=== PATIENT | female | born 1985 | race Caucasian/White ===

== ENCOUNTER → 2016-05-18 | Outpatient (CLI) | payer BC ==
[~2016-05-18] MED LIST: ALBU8.5H2 IH; BUDE10.2 IH; DEXL60CA5 PO; HYOS0.1217 PO; LEVO5TAB12 PO; LEVO75TA4 PO; ZOLP10TA PO
--- NOTE | 2016-05-18 12:11 | Diagnostic Imaging Report ---
Exam: MRI of the right foot without contrast. Date: May 18, 2016. Indication: 30-year-old female, right foot pain. Technique: Multiple noncontrast MRI sequences of the right foot were obtained. Comparison: None. Findings: A marker was placed at the site of new focal patient pain which is dorsally located centered above the level of the second metatarsal base. The Lisfranc ligament complex is intact. There is normal alignment of the metatarsal bases relative to their cuneiform and cuboid articulations. The visualized posterior flexor tendons are intact. There is a small amount of fluid within the tendon sheath the peroneus longus compatible with low level tenosynovitis. The peroneal tendons are otherwise intact in their visualized portions. The anterior extensor tendons are intact in their visualized segments. The visualized portions of the plantar fascia are intact. There is linear artifact in the distal aspect of the first metatarsal likely relating to postoperative changes. There is uncovering of the lateral sesamoid compatible with a hallux valgus deformity. There is a bipartite medial sesamoid without pronounced adjacent soft tissue swelling. There are mild changes of osteoarthritis at the first metatarsophalangeal joint. The additional joint spaces are well-preserved. There is no bone erosion. There is no joint effusion. There is no acute fracture, bone contusion, or evidence of osteonecrosis. There is no evidence of stress reaction. There is very mild soft tissue swelling adjacent to the first metatarsophalangeal joint. The additional soft tissues are unremarkable. Impression: 1. Low level tenosynovitis of peroneus longus. 2. Hallux valgus deformity with postoperative changes of the distal aspect of the first metatarsal. Mild osteoarthritis at the first metatarsophalangeal joint. 3. Intact Lisfranc ligament complex. 4. No acute fracture, bone contusion, or evidence of stress reaction. Dictated by: Dictated on workstation # [id number]
== END ==
LOC: RAD 08:22
PROVIDERS: ATTEND Podiatrist
DX: M79.671 Pain in right foot (principal); M20.11 Hallux valgus (acquired), right foot; M19.071 Primary osteoarthritis, right ankle and foot
CPT/HCPCS: 73718

== ENCOUNTER 2016-06-08 10:51 | Day surgery (SDC) | payer BC ==
[~2016-06-08] VITALS: Ht 162.6 cm; Wt 102.0 kg
[~2016-06-08 10:51] MED LIST changes: +AMIT10TA6 PO; +CLINDAMYCIN INJ 600 MG in SODIUM CHLORIDE 50 ML IV SCH; +LACTATED RINGERS 1,000 ML IV SCH; +SODIUM CHLORIDE FLUSH 3 ML SYR IV PRN
--- OUTSIDE RECORDS SUMMARY | 2016-06-08 10:54 | XMS REPORT | Continuity of Care Document ---
Author Author [facility] Organization [facility] Address Unknown Phone Unavailable Care Team Providers Care Die Turner Name Role Phone Rosa Avendano PCP [phone] Source Comments Some departments are not documenting in the electronic medical record. If you do not see the information that you expected, contact Release of Information in the Health Information Management department at [phone] for further assistance in locating additional records.[facility] Active Allergies and Adverse Reactions Allergen Noted Date Severity Reactions Comments Penicillins 11/25/2015 Low UNKNOWN Sulfa (Sulfonamide 11/25/2015 Low UNKNOWN Antibiotics) Current Medications Prescription Sig. Disp. Refills Start End Date Status Date Levocetirizine 5 mg tab Take by mouth. Active budesonide/formoterol Inhale 2 Puffs by mouth Active (SYMBICORT HFA) 160/4.5 into the lungs twice mcg inhalation daily. dexlansoprazole (+) Take 60 mg by mouth Active (DEXILANT) 60 mg capsule daily. amitriptyline (ELAVIL) 50 Take 0.5 Tabs by mouth at 30 Tab 5 11/25/19 Active mg tablet bedtime as needed. July 04 increase to 1 tab after 2 weeks Active Problems Problem Noted Date Oropharyngeal dysphagia 11/25/2015 Most Recent Encounters Date Type Specialty Providers Description 05/02/2016 Telephone Gastroenterology Amari-Dali Stephens, Results INTERN Social History Tobacco Use Types Packs/Day Years Used Date Never Smoker Last Filed Vital Signs Vital Sign Reading Time Taken Blood Pressure 149/97 11/25/2015 12:48 PM CDT Pulse 85 11/25/2015 12:48 PM CDT Temperature 37.1 C (98.8 F) 11/25/2015 12:48 PM CDT Respiratory Rate - - Height 1.626 m (5' 4") 11/25/2015 12:48 PM CDT Weight 94.257 kg (207 lb 12.8 11/25/2015 12:48 PM CDT oz) Body Mass Index 35.65 11/25/2015 12:48 PM CDT Oxygen Saturation - - Plan of Care Health Maintenance Due Date Last Done Comments Physical (Comprehensive) 07/04/1990 Exam Pertussis Vaccine 07/04/1994 Tetanus Vaccine 07/04/2000 Cervical Cancer Screening 07/04/2004 Influenza Vaccine 10/20/2016 Results from Last 3 Months Not on file
--- OUTSIDE RECORDS SUMMARY | 2016-06-08 10:55 | XMS REPORT | Continuity of Care Document ---
Author Author [facility] Organization [facility] Address Unknown Phone Unavailable Care Team Providers Care Gold Prospector Name Role Phone Rosa Avendano PCP [phone] Source Comments Some departments are not documenting in the electronic medical record. 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
[2016-06-08 11:03] VITALS: BP 143/83
[2016-06-08 11:44] LABS: BASOPHILS % (AUTO) 0 % (0-2); EOSINOPHILS # (AUTO) 0.2 10^3uL; EOSINOPHILS % (AUTO) 2 % (0-4); MEAN CORPUSCULAR HEMOGLOBIN 30.5 PG (26.0-34.0); MEAN CORPUSCULAR HGB CONC 32.7 g/dL (31.0-37.0); MEAN CORPUSCULAR VOLUME 93 FL (80-100); MEAN PLATELET VOLUME 9.2 FL (6.0-9.5); MONOCYTES % (AUTO) 11 % (3-11); NEUTROPHILS # (AUTO) 5.5 X10^3; NEUTROPHILS % (AUTO) 63 % (51-67); PLATELET COUNT 272 10^3uL (150-450); WHITE BLOOD COUNT 8.65 10^3uL (4.0-11.0)
[2016-06-08 11:46] LABS: BILIRUBIN,URINE Negative (Negative); CLARITY,URINE Clear; COLOR,URINE Yellow; GLUCOSE, URINE (UA) Negative (Negative); LEUKOCYTE ESTERASE, URINE Negative (Negative); PH,URINE 6.5 (5.0 - 8.0); UROBILINOGEN,URINE 0.2 mg/dL (0.2-1.0)
[2016-06-08 11:49] LABS: HCG,QUALITATIVE URINE Negative (Negative)
--- NOTE | 2016-06-08 12:38 | History and Physical (E) ---
History & Physical PCP: Titus Raya CC: Right foot pain- pre op medical clearance HPI: Hansa is a 30 year old female here for pre op medical clearance for right foot pain due to a lateral deviation of the Right hallux and exostosis formation. She had surgery on that foot in 2001 and has hardware present. She has not been able to get lasting pain relief as conservative measures have failed. She has opted for surgical intervention. Today she denies fever, chills, cough or sore throat. No chest pain or SOB- her asthma has been stable- she has seasonal allergies that flare up time to time. No nausea or vomiting, no abdominal pain. She is here with a friend who will help her post op. 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 HOME MEDICATIONS: Please see list at end of report. FH: Mother has hypothyroid Father of Liver cancer SH: Lives at home, not working currently, non smoker, no alcohol has 2 children ROS CONSTITUTION: Denies weight loss or gain. Denies fever or chills. HEENT: No change in vision or hearing. No sores in mouth, sore throat. CV: No chest pain, palpitations. No cardiac history PULM: No cough, shortness of breath, difficulty breathing. H/O asthma but stable GI: No upset stomach, nausea, vomiting, constipation, or diarrhea. No blood in stool. H/O GERD- stable : No dysuria. No blood in urine. MS: Endorses right foot pain chronic- No new joint aches and pains. NEURO: No numbness or tingling. No weakness. INTEG: No rashes, lesions, or sores. ENDO: No heat or cold intolerance. No polydipsia or polyuria.No Diabetes HEME/LYMPH: No easy bruising or bleeding. No swollen glands. PSYCH: No change in mood or behavior. OBJECTIVE: Vitals: Vital Signs Date Time Temp Pulse Resp B/P Pulse Ox O2 Delivery O2 Flow Rate FiO2 06/08/16 11:03 99.1 92 20 143/83 96 Room air GEN: Awake, alert, oriented, NAD-speech clear HEENT: EOMI, PERRL, moist oral mucosa. CV: RRR S1 S2 normal with no murmur LUNGS: CTA B no wheezes ABD: Soft, NT/ND with normal bowel sounds. EXTR: No C/C/E. Normal peripheral pulses. INTEG: No rash. MS- Right foot examined, slight swelling noted on the top of the foot- old scar noted, good pulses NEURO: No focal motor neuro deficit. Weight: 102 kg LABS: Laboratory Results Past 24 Hrs 06/08/16 11:40: Basophils # (Auto) 0.0, Basophils (%) (Auto) 0, Eosinophils # (Auto) 0.2, Eosinophils (%) (Auto) 2, Hematocrit 41.00, Hemoglobin 13.4, Lymphocytes # (Auto ) 2.0, Lymphocytes (%) (Auto) 23, Mean Corpuscular Hemoglobin 30.5, Mean Corpuscular Hemoglobin Concent 32.7, Mean Corpuscular Volume 93, Mean Platelet Volume 9.2, Monocytes # (Auto) 1.0, Monocytes (%) (Auto) 11, Neutrophils # (Auto ) 5.5, Neutrophils (%) (Auto) 63, Platelet Count 272, Red Blood Count 4.39, Red Cell Distribution Width 13.1, Urine Bilirubin Negative, Urine Blood Negative, Urine Clarity Clear, Urine Collection Type Clean catch, Urine Color Yellow, Urine Glucose (UA) Negative, Urine Ketones Negative, Urine Leukocyte Esterase Negative, Urine Nitrite Negative, Urine Test Negative, Urine Protein Negative, Urine Specific [place] 1.020, Urine Urobilinogen 0.2, Urine pH 6.5, White Blood Count 8.65 CBC BMP Last 24 Hrs 06/08/16 11:40 ASSESSMENT/PLAN Charla is a 30 year old female here for pre op medical clearance for right foot pain due to lateral deviation of the right Hallux and exostosis formation- scheduled for elective surgery per Dr. Caruso Asthma- stable GERD- stable Hypothyroid-Stable Seasonal Allergies- stable She is a low risk for a low risk surgery- will be happy to follow her post op as needed. She understands all risks and benefits and wishes to proceed. Allergies/Home Medications Allergies: Coded Allergies: Iodinated Contrast Media - Oral and (Verified Allergy, Unknown, 07/28/15) Penicillins (Verified Allergy, Unknown, 07/28/15) Sulfa (Sulfonamide Antibiotics) (Verified Allergy, Unknown, 07/28/15) milk (Verified Allergy, Unknown, 07/28/15) morphine (Verified Allergy, Unknown, 07/28/15) peanut (Verified Allergy, Unknown, 07/28/15) Reported Home Medications Scheduled Albuterol Sulfate (Proair HFA) 8.5 GM IH NEEDED (Reported) Amitriptyline HCl (Amitriptyline HCl) 10 MG PO DAILY (Reported) Budesonide/Formoterol Fumarate (Symbicort 160-4.5 mcg Inhaler) 10.2 GM IH BID ( Reported) Dexlansoprazole (Dexilant) 60 MG PO DAILY (Reported) Levocetirizine Dihydrochloride (Levocetirizine Dihydrochloride) 5 MG PO DAILY ( Reported) Discontinued Medications Hyoscyamine Sulfate (Hyoscyamine Sulfate) 0.125 MG PO DAILY (Reported) Discontinued Reason: Update list Levothyroxine Sodium (Levothyroxine Sodium) 75 MCG PO DAILY (Reported) Discontinued Reason: Update list Zolpidem Tartrate (Ambien) 10 MG PO HS (Reported) Discontinued Reason: Update list Copies to: End of Report . Alissa Delaney APRN Jun 08, 2016 12:38
[2016-06-08] MEDS ORDERED: ALFENTANIL 1,000 MCG/2 ML AMP IV ONE (12:40)
[2016-06-08] MEDS ORDERED: MIDAZOLAM 2 MG/2 ML (VERSED) VIAL ONE (12:40)
[2016-06-08] MEDS ORDERED: ALFENTANIL 500 MCG/ML (ALFENTA) 5 ML AMP IV ONE (12:40)
[2016-06-08] MEDS ORDERED: REMIFENTANIL 1 MG (ULTIVA) VIAL IV ONE (12:42)
[2016-06-08] MEDS ORDERED: ROPIVACAINE 1% 10 MG/ML (NAROPIN) 20 ML AMPUL ONE (12:44)
[2016-06-08] MEDS ORDERED: LIDOCAINE 2% (XYLOCAINE) 20 ML VIAL INJ ONE ×2 (12:44→13:32)
[2016-06-08] MEDS ORDERED: DEXAMETHASONE 4 MG/ML (DECADRON) VIAL ONE ×2 (12:53→15:48)
[2016-06-08] MEDS ORDERED: POVIDONE IODINE 10% OINTMENT (BETADINE) 30 GM TUBE TOP ONE (12:53)
[2016-06-08] MEDS ORDERED: BUPIVACAINE 0.5% (MARCAINE) 10 ML VIAL ONE (13:31)
[2016-06-08] MEDS ORDERED: ONDANSETRON 2 MG/ML (Z0FRAN) 2 ML VIAL ONE ×2 (14:53)
[2016-06-08] MEDS ORDERED: diphenhydrAMINE 50 MG/ML INJ (BENADRYL) ONE (14:54)
[2016-06-08] MEDS ORDERED: KETOROLAC 60 MG/2 ML (TORADOL) VIAL IM ONE (15:56)
[2016-06-08 16:06] VITALS: BP 114/58
[2016-06-08 16:27] VITALS: BP 143/91
--- NOTE | 2016-06-09 09:21 | OPERATIVE REPORT ---
DATE OF OPERATION: 06/08/2016 PRE-OPERATIVE DIAGNOSIS: 1. Hallux abductovalgus right foot. 2. Painful screws right 1st metatarsal. 3. 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 4. Exostosis right 2nd metatarsal head. 5. Cocked-up right 5th digit. POST-OPERATIVE DIAGNOSIS: 1. Hallux abductovalgus right foot. 2. Painful screws right 1st metatarsal. 3. 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 4. Exostosis right 2nd metatarsal head. 5. Cocked-up right 5th digit. OPERATIVE PROCEDURE: 1. Modified Álvarez bunionectomy, right foot. 2. Sam osteotomy right hallux. 3. Removal of painful screws x2 right foot. 4. Resect exostosis right 2nd metatarsal head. 5. Neurolysis/neurectomy right 1st intermetatarsal space. 6. EDL tenotomy right 5th digit. PATHOLOGY: 1. Resected bone from the right 1st MPJ, as well as the proximal phalanx of the right hallux. 2. Scar tissue and neuroma-like tissue from the right 1st intermetatarsal space. 3. Resected bone from the medial aspect of the right 2nd metatarsal head. SURGEON: Drake Caruso DPM STONEWORKER: [facility] OR staff ANESTHESIA: MAC local with IV sedation including a right ankle block per anesthesia. HEMOSTASIS: A well-padded pneumatic ankle tourniquet at 280 mmHg placed 1 cm above the medial malleolus. ESTIMATED BLOOD LOSS: Less than 5 mL MATERIALS: 1. #0 Prolene 2. 3-0 Vicryl. 3. 3-0 Ethilon. INJECTABLES: A total of 1.5 mL Decadron phosphate injected into the 1st intermetatarsal space of the right foot postoperatively. COMPLICATIONS: None OPERATION: The patient was brought to the [facility] OR suite and placed on the table in the supine position. Anesthesia was obtained as above. The patient was then prepped and draped in the usual and customary aseptic fashion. Hemostasis was then obtained as above. Attention was then brought to the dorsal medial aspect of the right 1st MPJ where a dorsal linear incision was placed through the epidermis and the dermis with a sterile #15 blade. With the use of both sharp and blunt dissection, taking care to preserve neurovascular bundles, the incision was carried down to the capsule of the 1st MPJ. All bleeders were identified, clamped, cut, and cauterized as needed at this time. A dorsal linear incision was placed through the capsule and reflected from the base of the proximal phalanx, as well as the head of the 1st metatarsal. The two 3.0 mm cannulated cortical bone screws that were used to fixate a chevron osteotomy several years ago, were found and removed. This was very difficult as the periosteum had grown over the top of the bones and into the groove of the screws. This took me an hour to remove the screws. At this point the dissection was carried laterally into the 1st intermetatarsal space. There was a significant amount of scar tissue and nerve entrapment of the intermediate dorsal cutaneous nerve within the scar tissue in the 1st intermetatarsal space. She had a soft tissue cyst of some sort excised from the lateral base of the proximal phalanx area several months ago, but either not of the cyst was removed, or this is more scar tissue, but a significant amount of white, gelatinous material was removed, as what had the appearance of the typical [place] neuroma. This was saved in 10% formalin and will be sent to pathology for diagnosis. At this time an Sam osteotomy was performed to the proximal phalanx and fixated with the use of #0 Prolene. I could still feel some scar tissue, and also a bit of an exostosis on the medial aspect of the right 2nd metatarsal head, therefore, I did make a new incision over the dorsal aspect of the 2nd MPJ with a sterile #15 blade. With the use of both sharp and blunt dissection, taking care to preserve neurovascular bundles, the incision was carried down to the capsule of the 2nd MPJ. All bleeders were identified, clamped, cut, and cauterized as needed at this time. A dorsal linear incision was placed through the capsule and reflected from the medial aspect of the head of the 2nd metatarsal. A sagittal was used to resect the medial aspect of the 1st metatarsal head and power bur was used to smoothen the 2nd metatarsal head. At this time attention was then brought to the dorsal aspect of the right 5th MPJ where a stab incision was placed through the epidermis and the dermis. The EDL and EDB tendons were appreciated and released. The right 5th digit then came down into a rectus alignment. All surgical wound was flushed with copious amounts of sterile saline. The capsules were al reapproximated with the use of 3-0 Vicryl and the skin was closed with 3-0 Ethilon. Then 1.5 mL of Decadron phosphate was then injected into the 1st intermetatarsal space. I then applied Betadine ointment, a sterile Adaptic, and a dry sterile dressing. The tourniquet was released and there was immediate capillary filling time to all digits of the right foot. The patient tolerated the anesthesia and the surgery quite well and left for the recovery room in stable condition. The patient's first postoperative visit is in 1 week, sooner if any problems or concerns.
[2016-06-09] MEDS ORDERED: ONDN4T PO (22:11)
[2016-06-09] MEDS ORDERED: RANI-419 PO (22:11)
[2016-06-09] MEDS ORDERED: OXYC-109 PO (22:11)
== END 2016-06-08 16:35 | disposition home or self-care (01) ==
LOC: ASC 10:51
PROVIDERS: ATTEND Podiatrist
DX: M20.11 Hallux valgus (acquired), right foot (principal); G57.61 Lesion of plantar nerve, right lower limb; D16.31 Benign neoplasm of short bones of right lower limb; M20.5X1 Other deformities of toe(s) (acquired), right foot; M21.611 Bunion of right foot; T84.84XA Pain due to internal orthopedic prosthetic devices, implants and grafts, initial encounter; J45.909 Unspecified asthma, uncomplicated; K21.9 Gastro-esophageal reflux disease without esophagitis; Y83.8 Other surgical procedures as the cause of abnormal reaction of the patient, or of later complication, without mention of misadventure at the time of the procedure
CPT/HCPCS: 28104; 28234; 28298; 36415; 81003; 81025; 85025; J1100; J1200; J1885; J2001; J2250; J2405; J2795; J7120

== ENCOUNTER 2016-06-09 21:39 | Emergency (ER) | payer BC ==
[~2016-06-09] VITALS: Ht 162.6 cm; Wt 100.0 kg
[~2016-06-09 21:39] MED LIST changes: -CLINDAMYCIN INJ 600 MG in SODIUM CHLORIDE 50 ML IV SCH; -LACTATED RINGERS 1,000 ML IV SCH; -SODIUM CHLORIDE FLUSH 3 ML SYR IV PRN
--- OUTSIDE RECORDS SUMMARY | 2016-06-09 21:44 | XMS REPORT | Continuity of Care Document ---
Author Author [facility] Organization [facility] Address Unknown Phone Unavailable Care Team Providers Care Property Technician Name Role Phone Rosa Avendano PCP [phone] Source Comments Some departments are not documenting in the electronic medical record. 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
--- OUTSIDE RECORDS SUMMARY | 2016-06-09 21:45 | XMS REPORT | Continuity of Care Document ---
Author Author [facility] Organization [facility] Address Unknown Phone Unavailable Care Team Providers Care Broomcorn Press Feeder Name Role Phone Rosa Avendano PCP [phone] Source Comments Some departments are not documenting in the electronic medical record. 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
--- OUTSIDE RECORDS SUMMARY | 2016-06-09 21:45 | XMS REPORT | Continuity of Care Document ---
Author Author [facility] Organization [facility] Address Unknown Phone Unavailable Care Team Providers Care Machine Grinder Name Role Phone Rosa Avendano PCP [phone] Source Comments Some departments are not documenting in the electronic medical record. 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
--- OUTSIDE RECORDS SUMMARY | 2016-06-09 21:46 | XMS REPORT | Continuity of Care Document ---
Author Author [facility] Organization [facility] Address Unknown Phone Unavailable Care Team Providers Care Skiving Machine Operator Name Role Phone Rosa Avendano PCP [phone] Source Comments Some departments are not documenting in the electronic medical record. If you do not see the information that you expected, contact Release of Information in the Health Information Management department at [phone] for further assistance in locating additional records.[facility] Active Allergies and Adverse Reactions Allergen [...] Description 05/02/2016 Telephone Gastroenterology Amari-Dali Stephens, Results CLINIC OFFICE COORDINATOR Social History Tobacco Use Types Packs/Day Years [...]
[2016-06-09] MEDS ORDERED: RANI-419 PO (22:11)
[2016-06-09] MEDS ORDERED: ONDN4T PO (22:11)
[2016-06-09] MEDS ORDERED: OXYC-109 PO (22:11)
[2016-06-09] MEDS ORDERED: SODIUM CHLORIDE FLUSH 10 ML SYR IV PRN (22:30)
[2016-06-09] MEDS ORDERED: SODIUM CHLORIDE FLUSH 3 ML SYR IV PRN (22:30)
[2016-06-09] MEDS: METOCLOPRAMIDE 10 MG/2 ML (REGLAN) VIAL IV ONE (22:47)
[2016-06-09] MEDS: HYDROmorphone 1 MG/ML (DILAUDID) SYRINGE IV ONE (22:47)
--- NOTE | 2016-06-09 23:30 | NUR ---
Attila conti in [facility] - 06/10/16 at 0321 by [id number] Patient ate 2 cans of chicken noodle soup, also had 2 cans earlier.
[2016-06-09] MEDS: SODIUM CHLORIDE 250 ML IV SCH (23:55)
[2016-06-10] MEDS: ED- TRAMADOL 50 MG (ULTRAM) 6 TABLETS/BTL PO ONE (00:42)
[2016-06-10] MEDS ORDERED: TRM50T PO (00:42)
[2016-06-10 00:52] VITALS: BP 149/88
--- NOTE | 2016-06-10 01:00 | NUR ---
Dr. Caruso came in to check on patient's foot. He removed old dressing and applied a new dressing, reported to Dr. Ellis that the dressing was too tight and that is why she was having so much pain.
== END 2016-06-10 01:13 | disposition home or self-care (01) ==
LOC: ED 21:40
DX: E86.0 Dehydration (principal); R11.2 Nausea with vomiting, unspecified; T39.1X5A Adverse effect of 4-Aminophenol derivatives, initial encounter; Y92.009 Unspecified place in unspecified non-institutional (private) residence as the place of occurrence of the external cause; M79.671 Pain in right foot; Z98.890 Other specified postprocedural states; Z48.01 Encounter for change or removal of surgical wound dressing
CPT/HCPCS: 96361; 96374; 96375; 99283; J1170; J2765; J7030